=== PATIENT | male | born 1980 | race Caucasian/White ===

== ENCOUNTER 2019-03-11 15:16 | Observation (INO) | payer BC ==
[~2019-03-11] VITALS: Ht 170.2 cm; Wt 72.6 kg
--- OUTSIDE RECORDS SUMMARY | 2019-03-11 15:19 | XMS REPORT ---
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 Allergies, Adverse Reactions, Alerts Allergy Name Allergy Type Status Severity Reaction(s) Onset Date Inactive Date Treating Clinician Comments Penicillins DA Active U 2018-09-10 00:00:00 vancomycin DA Active U 2018-09-10 00:00:00 Penicillins DA Active U 2014-03-08 00:00:00 vancomycin DA Active U 2014-03-08 00:00:00 Medications This patient has no known medications. Results Test Description Test Time Test Comments Text Results Atomic Results Result Comments - XR ABDOMEN 1V (KUB) 2018-11-18 10:16:00 FAX: Johny Futlon MD [phone] [place]: St: REG Name: YOVANY MACHADO [facility] [place] : 1980 Age/S: 38/M [address] [place] [address] Bl Unit #: [id number] Loc: [place] [address] Phys: Johny Duran MD Acct: [id number] Dis Date: Status: REG CLI PHONE #: [phone] Exam Date: 11/18/2018 1013 FAX #: [phone] Reason: KIDNEY STONE EXAMS: CPT CODE: [id number] XR ABDOMEN 1V (KUB) 79522 ABDOMEN KUB, 11/18/2018: COMPARISON: CT abdomen dated October 27, 2018 CLINICAL HISTORY: KIDNEY STONE FINDINGS: AP view of the abdomen was obtained. The abdominal gas pattern was nonspecific without definite evidence of obstruction. 3.5 mm calculus overlies the upper pole of the right kidney. Assessment of the kidneys is limited due to overlying bowel contents. Multiple calcified phleboliths are present in the pelvis bilaterally. IMPRESSION: Nonspecific, nonobstructive bowel gas pattern. Right renal calculus. (Note: Recent CT study demonstrated bilateral nephrolithiasis. Renal calculi are better seen on the CT study than on this radiograph.). at 1016 Reported and signed by: Rocky Marshall M.D. CC: Johny Duran MD Technologist: RT Kosta(R) Trnscrd Date/Time/By: 11/18/2018 (1016) : By: [email or web address] Orig Print D/T: S: 11/18/2018 (1019) PAGE 1 Signed Report UA RFLX MICR CULT IF INDICATED 2018-10-27 14:48:00 UA COLOR (test code=COLU) YELLOW YEL/STRAW UA APPEARANCE (test code=APPU) SL CLOUDY CLEAR UA GLUCOSE DIPSTICK (test code=DGLUU) NEGATIVE NEGATIVE UA BILIRUBIN DIPSTICK (test code=BILU) NEGATIVE NEGATIVE UA KETONE DIPSTICK (test code=KETU) NEGATIVE NEGATIVE UA SPECIFIC GRAVITY (test code=SGU) 1.014 1.005-1.030 UA BLOOD DIPSTICK (test code=NAREN) 3+ NEGATIVE UA PH DIPSTICK (test code=FOREST) 5.0 5.0-7.0 UA PROTEIN DIPSTICK (test code=PROU) NEGATIVE NEGATIVE UA UROBILINIOGEN DIPSTICK (test code=URO) 0.2 mg/dL 0.2-1.0 UA NITRITE DIPSTICK (test code=DARREN) NEGATIVE NEGATIVE UA LEUKOCYTE ESTERASE DIPSTICK (test code=LEUU) NEGATIVE NEGATIVE UA WBC (test code=WBCU) 4-9 WBC/HPF 0-3 UA RBC (test code=RBCU) >50 RBC/HPF 0-3 UA WBC NO REFLEX (test code=WBCUCL) 4-9 WBC/HPF 0-3 UA BACTERIA (test code=BACU) TRACE /HPF NONE SEEN UA SQUAMOUS CELLS (test code=SQU) 0-5 /HPF NONE SEEN UA MUCUS (test code=MUCU) 4+ /LPF NONE SEEN Indication for culture: Flank PainSpecimen Description: CLEAN CATCH- CT ABD PELVIS W/O [id number] 12:23:00 Name: YOVANY MACHADO [facility] : 1980 Age/S: 38 / M [address] [place] [address] Blvd Unit #: [id number] Loc: [place] [address] Phys: Prabha Alexis 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 History of renal stones. Comparison: 03/08/2014. TECHNIQUE: Contiguous axial CT images of the abdomen and pelvis were acquired without the administration of IV contrast. Oral contrast was not administered. Coronal and sagittal reconstructions were obtained. CT imaging performed at this location utilizes radiation dose optimization techniques which include one or more of the following: -Automated exposure control -Adjustment of the mA and/or kV according to patient size -Use of iterative reconstruction technique CT Radiation Dose DLP 550 mGy-cm FINDINGS: Lung bases are clear. Visualized cardiac apex is unremarkable. Liver, gallbladder, spleen, pancreas, and adrenal glands are unremarkable. Multiple nonobstructing stones within the kidneys. On the right 5 punctate stones are identified me asuring up to 5 mm. On the left, there is a punctate 1 mm stone within th e lower pole. Slight prominence of the left ureter without overt hydroure teronephrosis. A 2 mm stone is seen lying dependently within the urinary b ladder, presumably recently passed. Stomach and small bowel are unremarkable. The appendix is normal. Colon is unremarkable. Prosta te is unremarkable. No free fluid or pneumoperitoneum. Abdominal aorta is normal caliber. No aggressive or destructive osseous lesion. So ft tissues are unremarkable. IMPRESSION: 1. Multip le nonobstructing stones within both kidneys. A 2 mm stone is seen lyin g dependently within the urinary bladder, presumably recently passed. N o hydroureteronephrosis. SL: [id number] PAGE 1 Signed Report (CONTINUED) Name: Tiny MACHADO [facility] : 1980 Age /S: 38 / M [address] [place] [address] Blvd Unit #: [id number] Loc: [place] [address] Phys: Prabha Alexis NP Acct: [id number] Dis Date: Status: REG ER PHONE #: [phone] Exam Date: 10/27/2018 1200 FAX #: [phone] Reason: L flank pain, hx stones EXAMS: CPT CODE: [id number] CT ABD PELVIS W/O CONT 53897 <Continued> at 1223 Reported and signed by: Jessenia Llanos M.D. CC: Prabha Alexis NP Technologist:Addie Lange RT(R)(CT) CTDI: DLP: Trnscb Date/Time: 10/27/2018 (1223) [email or web address] Orig Print D/T: S: 10/27/2018 (1226) PAGE 2 Signed Report COMPREHENSIVE METABOLIC [id number] 12:21:00* Test Item Value Reference Range Comments SODIUM (test code=NA) 139 mEq/L 134-147 POTASSIUM (test code=K) 4.0 mEq/L 3.4-5.0 CHLORIDE (test code=CL) 108 mEq/L 100-108 CARBON DIOXIDE (test code=CO2) 25 mEq/L 21-33 ANION GAP (test code=GAP) 10 0-20 GLUCOSE (test code=GLU) 95 mg/dL 70-110 BLOOD UREA NITROGEN (test code=BUN) 8 mg/dL 7-18 GLOMERULAR FILTRATION RATE (test code=GFR) 74.1 95-105 Units of measure=ml/min/1.73 m2 CREATININE (test code=CREAT) 1.1 mg/dL 0.6-1.3 TOTAL PROTEIN (test code=PROT) 7.7 g/dL 6.4-8.2 ALBUMIN (test code=ALB) 3.90 g/dL 3.4-5.0 CALCIUM (test code=CA) 8.7 mg/dL 8.0-10.5 BILIRUBIN TOTAL (test code=BILT) 0.40 mg/dL 0.0-1.0 SGOT/AST (test code=AST) 12 IUnit/L 15-37 SGPT/ALT (test code=ALT) 29 IUnit/L 15-65 ALKALINE PHOSPHATASE TOTAL (test code=ALKP) 58 IUnit/L 20-125 [id number] 12:21:00* Test Item Value Reference Range Comments LIPASE (test code=LIP) 71 IUnit/L 73-393 COMPREHENSIVE METABOLIC [id number] 12:17:00* Test Item Value Reference Range Comments SODIUM (test code=NA) 139 mEq/L 134-147 POTASSIUM (test code=K) 4.0 mEq/L 3.4-5.0 CHLORIDE (test code=CL) 108 mEq/L 100-108 CARBON DIOXIDE (test code=CO2) 25 mEq/L 21-33 ANION GAP (test code=GAP) 10 0-20 GLUCOSE (test code=GLU) 95 mg/dL 70-110 BLOOD UREA NITROGEN (test code=BUN) 8 mg/dL 7-18 GLOMERULAR FILTRATION RATE (test code=GFR) 95-105 CREATININE (test code=CREAT) mg/dL 0.6-1.3 TOTAL PROTEIN (test code=PROT) g/dL 6.4-8.2 ALBUMIN (test code=ALB) g/dL 3.4-5.0 CALCIUM (test code=CA) 8.7 mg/dL 8.0-10.5 BILIRUBIN TOTAL (test code=BILT) mg/dL 0.0-1.0 SGOT/AST (test code=AST) IUnit/L 15-37 SGPT/ALT (test code=ALT) IUnit/L 15-65 ALKALINE PHOSPHATASE TOTAL (test code=ALKP) IUnit/L 20-125 [id number] 12:17:00* Test Item Value Reference Range Comments LIPASE (test code=LIP) IUnit/L 73-393 CBC W/AUTO [id number] 12:07:00* Test Item Value Reference Range Comments WHITE BLOOD CELL (test code=WBC) 8.39 x10 3/uL 4.5-11.0 RED BLOOD CELL (test code=RBC) 5.10 x10 6/uL 4.00-5.60 HEMOGLOBIN (test code=HGB) 15.2 g/dL 12.5-16.9 HEMATOCRIT (test code=HCT) 45.8 % 37.5-50.7 MEAN CELL VOLUME (test code=MCV) 89.8 fL 81.0-99.0 MEAN CELL HGB (test code=MCH) 29.8 pg 27.0-33.0 MEAN CELL HGB CONCETRATION (test code=MCHC) 33.2 g/dL 33.0-37.0 RED CELL DISTRIBUTION WIDTH CV (test code=RDW) 12.4 % 11.5-14.5 RED CELL DISTRIBUTION WIDTH SD (test code=RDW-SD) 41.1 fL 37.0-54.0 PLATELET COUNT (test code=PLT) 318 x10 3/uL 150-400 MEAN PLATELET VOLUME (test code=MPV) 9.8 fL 7.0-9.0 NEUTROPHIL % (test code=NT%) 84.0 % 56.0-77.0 IMMATURE GRANULOCYTE % (test code=IG%) 0.5 % 0.0-2.0 LYMPHOCYTE % (test code=LY%) 9.9 % 14.0-32.0 MONOCYTE % (test code=MO%) 4.2 % 4.8-9.0 EOSINOPHIL % (test code=EO%) 1.2 % 0.3-3.7 BASOPHIL % (test code=BA%) 0.2 % 0.0-2.0 NUCLEATED RBC % (test code=NRBC%) 0.0 % 0-0 NEUTROPHIL # (test code=NT#) 7.05 x10 3/uL 2.0-7.6 IMMATURE GRANULOCYTE # (test code=IG#) 0.04 x10 3/uL 0.00-0.03 LYMPHOCYTE # (test code=LY#) 0.83 x10 3/uL 1.0-3.8 MONOCYTE # (test code=MO#) 0.35 x10 3/uL 0.1-0.8 EOSINOPHIL # (test code=EO#) 0.10 x10 3/uL 0.0-0.2 BASOPHIL # (test code=BA#) 0.02 x10 3/uL 0.0-0.2 NUCLEATED RBC # (test code=NRBC#) 0.00 x10 3/uL 0.0-0.1 MANUAL DIFF REQUIRED (test code=MDIFF) NO - XR FEMUR MIN 2 VWS [id number] 11:49:00 FAX: Rivas Stacy [phone] [place]: St: REG Name: YOVANY PHILLIPS [facility] : [birth year] Age/S: 38/M [address] [place] [address] Unit #: [id number] Loc: [place] [address] Phys: Rivas Stacy Acct: [id number] Dis Date: Status: REG ER PHONE #: [phone] Exam Date: 09/10/2018 1128 FAX #: [phone] Reason: knee swelling, painful ROM after hyperextension EXAMS: CPT CODE: [id number] XR FEMUR MIN [address] [place] [address] Study: - XR KNEE 1 OR 2 V LT, - XR TIBIA/FIBULA 2 V LT, - XR FEMUR MIN 2 VWS LT 09/10/2018 10:27 AM Patient Name: YOVANY MACHADO MR: [id number] : 1980; Age: 38 years y/o Male Ordering Physician: AMOR Banerjee Clini gianni Indication: knee swelling, painful ROM after hyperextension Co mparison: None LEFT FEMUR, 2 views Left knee, 2 views Left tibia and fibula, 2 views: No acute fracture, dislocation, or suspicious focal osseous lesion. Nonspecific calcification at the anterom edial aspect of the mid fibular shaft The soft tissues are normal. IMPRESSION: No acute fracture or malalignment SL: [id number] at 1149 Reported and si gned by: Adonis Ashraf M.D. CC: Rivas CHINCHILLA Technologist: FRANCINE Russ) Trnscrd Date/Time/By: 09/10/2018 (0395) : By: Maria [email or web address] Orig Print D/T: S: 09/10/2018 (9909) PAGE 1 Signed Report - XR TIBIA/FIBULA 2 V LT 2018-09-10 11:49:00 FAX: Rivas Stacy [phone] [place]: St: REG Name: YOVANY PHILLIPS [facility] : [birth year] Age/S: 38/M [address] [place] [address] Unit #: [id number] Loc: [place] [address] Phys: Rivas Stacy Acct: [id number] Dis Date: Status: REG ER PHONE #: [phone] Exam Date: 09/10/2018 1128 FAX #: [phone] Reason: knee swelling, painful ROM after hyperextension EXAMS: CPT CODE: [id number] XR TIBIA/FIBULA 2 [place] [address] Study: - XR KNEE 1 OR 2 V LT, - XR TIBIA/FIBULA 2 V LT, - XR FEMUR MIN 2 VWS LT 09/10/2018 10:27 AM Patient Name: YOVANY MACHADO MR: [id number] : 1980; Age: 38 years y/o Male Ordering Physician: AMOR Banerjee Clini gianni Indication: knee swelling, painful ROM after hyperextension Co mparison: None LEFT FEMUR, 2 views Left knee, 2 views Left tibia and fibula, 2 views: No acute fracture, dislocation, or suspicious focal osseous lesion. Nonspecific calcification at the anterom edial aspect of the mid fibular shaft The soft tissues are normal. IMPRESSION: No acute fracture or malalignment SL: [id number] at 1149 Reported and si gned by: Adonis Ashraf M.D. CC: Rivas CHINCHILLA Technologist: RT Jeb(R) Trnscrd Date/Time/By: 09/10/2018 (4478) : By: Maria [email or web address] Orig Print D/T: S: 09/10/2018 (5449) PAGE 1 Signed Report - XR KNEE 1 OR 2 V [id number] 11:49:00 FAX: Rivas Stacy [phone] [place]: St: REG Name: YOVANY PHILLIPS [facility] : [birth year] Age/S: 38/M [address] [place] [address] Unit #: [id number] Loc: [place] [address] Phys: Rivas Stacy Acct: [id number] Dis Date: Status: REG ER PHONE #: [phone] Exam Date: 09/10/2018 1128 FAX #: [phone] Reason: knee swelling, painful ROM after hyperextension EXAMS: CPT CODE: [id number] XR KNEE 1 OR 2 [place] [address] Study: - XR KNEE 1 OR 2 V LT, - XR TIBIA/FIBULA 2 V LT, - XR FEMUR MIN 2 VWS LT 09/10/2018 10:27 AM Patient Name: YOVANY MACHADO MR: [id number] : 1980; Age: 38 years y/o Male Ordering Physician: AMOR Banerjee Clini gianni Indication: knee swelling, painful ROM after hyperextension Co mparison: None LEFT FEMUR, 2 views Left knee, 2 views Left tibia and fibula, 2 views: No acute fracture, dislocation, or suspicious focal osseous lesion. Nonspecific calcification at the anterom edial aspect of the mid fibular shaft The soft tissues are normal. IMPRESSION: No acute fracture or malalignment SL: [id number] at 1149 Reported and si gned by: Adonis Ashraf M.D. CC: Rivas CHINCHILLA Technologist: RT Jeb(Maral) Trnscrd Date/Time/By: 09/10/2018 (7865) : By: Maria [email or web address] Orig Print D/T: S: 09/10/2018 (1394) PAGE 1 Signed Report
[2019-03-11] MEDS ORDERED: ONDANSETRON HCL INJ 2MG/ML 2ML 2 MG/ML VIAL IV STA (15:20)
[2019-03-11] MEDS ORDERED: KETOROLAC TROMETHAMINE 30 MG/ML VIAL IV STA (15:20)
[2019-03-11] MEDS ORDERED: SODIUM CHLORIDE 0.9% 1000ML 1,000 ML IV STA (15:20)
[2019-03-11] MEDS ORDERED: CEFTRIAXONE SOD 1 GM/NS 50 ML 50 ML IV ONE (15:30)
[2019-03-11] MEDS ORDERED: GENTAMICIN 80MG/NS 100 ML 200 ML IV ONE (16:00)
[2019-03-11] MEDS ORDERED: IOPAMIDOL 300MG/ML 100 ML INFUS..BTL IV ONE (16:04)
[2019-03-11] MEDS ORDERED: B&O 60MG R/S 60 MG SUPP PR ONE (16:05)
[2019-03-11 16:10] LABS: BASOPHILS % 0.2 % (0.0-1.0); EOSINOPHILS # (AUTO) 0.1 (0.0-0.4); EOSINOPHILS % 1.2 % (0.0-6.0); HEMATOCRIT 41.7 % (38.2-49.6); HEMOGLOBIN 13.6 g/dL (14.0-18.0); LYMPHOCYTES # (AUTO) 1.1 (1.0-3.2); LYMPHOCYTES % 10.2 % (18.0-39.1); MEAN CORPUSCULAR HEMOGLOBIN 29.8 pg (28-32); MEAN CORPUSCULAR HGB CONC 32.6 g/dL (31-35); MEAN CORPUSCULAR VOLUME 91.2 fL (81-99); MONOCYTES # (AUTO) 1.1 (0.2-0.8); MONOCYTES % 9.8 % (4.4-11.3); NEUTROPHILS # (AUTO) 8.7 (2.1-6.9); NEUTROPHILS % 78.3 % (38.7-80.0); PLATELET COUNT 260 x10e3/uL (140-360); RED BLOOD COUNT 4.57 x10e6/uL (4.3-5.7); RED CELL DISTRIBUTION WIDTH 12.7 % (11.7-14.4)
--- NOTE | 2019-03-11 16:26 | Diagnostic Imaging Report ---
Exam: KUB - 2 views Indication: Ureteral calculus Comparison: None Findings: No radiographically apparent renal calculi. No calcific densities over the expected course of the ureters. Nonobstructive bowel gas pattern. No free air. Phleboliths in the pelvis. No acute osseous injury. Impression: No radiographically apparent urinary calculi. Signed by: Meghna Richardson MD on 03/11/2019 4:24 PM
[2019-03-11 16:29] LABS: CALCIUM 9.1 mg/dL (8.4-10.2); CREATININE, SERUM 1.54 mg/dL (0.72-1.25)
[2019-03-11] MEDS ORDERED: MORPHINE SULFATE INJ 4 MG/ML INJ 1ML IV PRN (16:30)
[2019-03-11] MEDS ORDERED: ONDANSETRON HCL INJ 2MG/ML 2ML 2 MG/ML VIAL IV PRN (16:30)
[2019-03-11] MEDS ORDERED: MORPHINE SULFATE 2 MG/ML SYR 1ML IV PRN (16:30)
[2019-03-11] MEDS ORDERED: D5.45%NS/KCL 20MEQ 1,000 ML IV SCH (17:24)
[2019-03-11] MEDS ORDERED: B&O 60MG R/S 60 MG SUPP PR PRN (17:30)
[2019-03-11] MEDS ORDERED: MORPHINE SULFATE 1 MG/ML 30ML PCA IV PRN (17:30)
[2019-03-11] MEDS ORDERED: DIPHENHYDRAMINE HCL 25 MG CAP PO PRN (17:30)
[2019-03-11] MEDS ORDERED: NALOXONE HCL INJ 0.4 MG/ML AMP IV PRN (17:30)
[2019-03-11] MEDS ORDERED: PHENAZOPYRIDINE HCL 100 MG TAB PO SCH (18:00)
[2019-03-11] MEDS ORDERED: ACETAMINOPHEN 1000 MG/100 ML IV SCH (18:00)
[2019-03-11] MEDS ORDERED: SEVOFLURANE INHAL SOLN 250 ML PEN BTL ONE (18:10)
[2019-03-11] MEDS ORDERED: PROPOFOL IV EMULSION 10 MG/ML 20 ML VIAL ONE (18:10)
[2019-03-11] MEDS ORDERED: ONDANSETRON HCL INJ 2MG/ML 2ML 2 MG/ML VIAL ONE (18:10)
[2019-03-11] MEDS ORDERED: DEXAMETHASONE SOD PHOS INJ 4 MG/ML VIAL ONE (18:10)
[2019-03-11] MEDS ORDERED: ACETAMINOPHEN 1000 MG/100 ML IV ONE (18:10)
[2019-03-11] MEDS ORDERED: KETOROLAC TROMETHAMINE 30 MG/ML VIAL ONE (18:10)
[2019-03-11] MEDS ORDERED: MORPHINE SULFATE 1 MG/ML 30ML PCA ONE (18:21)
--- NOTE | 2019-03-11 18:58 | NUR ---
RECEIVED REPORT FROM PREVIOUS NURSE. WHILE RECEIVING REPORT, PATIENT ARRIVED TO THE UNIT VIA STRETCHER AND BOTTOMING ROOM INSPECTOR PUMP. PATIENT IN NO DISTRESS. PATIENT WALKED FROM STRETCHER TO THE BED WITH NO PAIN. CALL LIGHT WITHIN REACH. PATIENT IS A&OX3 AND AMBULATES.
[2019-03-11 19:30] VITALS: BP 119/69
[2019-03-11 20:00] VITALS: BP 119/69
[2019-03-11] MEDS ORDERED: LEVOFLOXACIN 500 MG TAB PO SCH (20:00)
[2019-03-11] MEDS: OXYBUTYNIN CHLORIDE 5 MG TAB PO SCH (20:04)
[2019-03-11 20:19] VITALS: BP 119/69
[2019-03-11] MEDS: ONDANSETRON HCL INJ 2MG/ML 2ML 2 MG/ML VIAL IV PRN (23:36)
[2019-03-12] MEDS: SODIUM CHLORIDE 0.9% 1000ML 1,000 ML IV SCH ×2 (00:36→09:09)
[2019-03-12 00:45] VITALS: BP 116/68
[2019-03-12] MEDS ORDERED: TYLENOL # 31 EA (03:07)
[2019-03-12] MEDS ORDERED: KETOROLAC TROME10 MG (03:07)
[2019-03-12] MEDS ORDERED: FLOMAX0.4 MG (03:07)
[2019-03-12] MEDS ORDERED: ONDANSETRON HCL4 MG (03:07)
[2019-03-12 04:18] VITALS: BP 111/63
[2019-03-12 05:32] LABS: HEMATOCRIT 38.1 % (38.2-49.6); HEMOGLOBIN 12.3 g/dL (14.0-18.0); LYMPHOCYTES # (AUTO) 0.4 (1.0-3.2); LYMPHOCYTES % 4.7 % (18.0-39.1); MEAN CORPUSCULAR HEMOGLOBIN 29.8 pg (28-32); MEAN CORPUSCULAR HGB CONC 32.3 g/dL (31-35); MEAN CORPUSCULAR VOLUME 92.3 fL (81-99); MONOCYTES # (AUTO) 0.3 (0.2-0.8); MONOCYTES % 3.9 % (4.4-11.3); NEUTROPHILS # (AUTO) 7.8 (2.1-6.9); NEUTROPHILS % 90.8 % (38.7-80.0); PLATELET COUNT 239 x10e3/uL (140-360); RED BLOOD COUNT 4.13 x10e6/uL (4.3-5.7); RED CELL DISTRIBUTION WIDTH 12.6 % (11.7-14.4)
[2019-03-12 05:48] LABS: ANION GAP 12.2 mmol/L (8-16); BLOOD UREA NITROGEN 10 mg/dL (7-26); BUN/CREATININE RATIO 9 (6-25); CALCIUM 8.6 mg/dL (8.4-10.2); CARBON DIOXIDE 25 mmol/L (22-29); CHLORIDE 107 mmol/L (98-107); CREATININE, SERUM 1.06 mg/dL (0.72-1.25); EST GLOMERULAR FILTRATION RATE > 60 ML/MIN (60-); GLUCOSE 134 mg/dL (74-118); POTASSIUM 4.2 mmol/L (3.5-5.1); SODIUM 140 mmol/L (136-145)
--- NOTE | 2019-03-12 07:09 | NUR ---
received pt from previous shift, blend technician morphine checked, pt resting in bed
--- NOTE | 2019-03-12 07:24 | NUR ---
GAVE BEDSIDE SHIFT REPORT TO ONCOMING NURSE. CALL LIGHT WITHIN REACH. PATIENT ASLEEP IN BED. PATIENT IN NO PAIN OR DISTRESS.
[2019-03-12 08:04] VITALS: BP 100/70
[2019-03-12] MEDS: OXYBUTYNIN CHLORIDE 5 MG TAB PO SCH (08:25)
[2019-03-12] MEDS: ONDANSETRON HCL INJ 2MG/ML 2ML 2 MG/ML VIAL IV PRN (08:25)
[2019-03-12 08:30] VITALS: BP 100/70
[2019-03-12] MEDS ORDERED: DOCUSATE SODIUM 100 MG CAP PO SCH (09:00)
[2019-03-12] MEDS ORDERED: CIPRO500 MG PO (11:59)
[2019-03-12] MEDS ORDERED: CELEBREX100 MG PO (12:00)
[2019-03-12] MEDS ORDERED: ULTRAM50 MG PO (12:01)
[2019-03-12] MEDS ORDERED: DITROPAN XL5 MG PO (12:01)
[2019-03-12 13:53] VITALS: BP 134/83
--- NOTE | 2019-03-13 00:45 | Discharge Summary ---
FINAL DIAGNOSIS: Right 5 mm urethral stone associated with hydronephrosis, status post cystoscopy with stent placement. SUMMARY: The patient is a 38-year-old male with stone. The patient had multiple stones in the past, but did not require stenting, now came in with hydronephrosis, severe pain, right renal colic. The patient now status post stent placement. He is doing much better. Pain has significantly improved. The patient is urinating. No Dang catheter. The patient has been cleared by Dr. Nick La, his urologist, for going home. I will send the patient home. Dr. La will give the patient tramadol and Ditropan and I went ahead and gave the patient Cipro 500 mg twice a day for 7 days and Celebrex 100 mg twice a day as needed for pain. The patient is otherwise stable, discharged home. Follow up with Dr. Nick La closely. MD ZAYRA Luz/GREGORIO /[id number]
[2019-03-30] MEDS ORDERED: AZO BLADDER CO300 MG PO (15:28)
--- NOTE | 2019-04-11 00:49 | Operative Report ---
DATE OF PROCEDURE: 03/11/2019 SURGEON: Nick La MD PREOPERATIVE DIAGNOSES: 1. Right ureterolithiasis. 2. Right hydronephrosis due to stone. 3. Microhematuria. POSTOPERATIVE DIAGNOSES: 1. Right ureterolithiasis. 2. Right hydronephrosis due to stone. 3. Microhematuria. OPERATION PERFORMED: 1. Cystourethroscopy with bilateral ureteral catheterization and retrograde ureteropyelography (separate procedure performed for the microhematuria). 2. Interpretation of retrograde ureteropyelography. 3. Supervision of fluoroscopy, no radiologist present. 4. Right ureteroscopy with stone manipulation and extraction (separate procedure performed for the ureterolithiasis). 5. Cystourethroscopy and insertion of right indwelling ureteral stent (separate procedure performed to relieve the hydronephrosis). 6. Radiological services with supervision and interpretation of ureteroscopy. ANESTHESIA: General. COMPLICATIONS: None. CLINICAL SUMMARY: Jonathan Deluna is a 38-year-old man presented with renal colic and nausea and vomiting. He is brought for stone management. He is aware of the risks of bleeding, infection, injury to adjacent structures, and need for additional procedures, and elected to proceed. OPERATIVE PROCEDURE IN DETAIL: Informed consent was verified. Jonathan Deluna was properly identified, taken to the operating room, and placed on the cystoscopy table in supine position. Anesthesia was uneventfully begun. The patient was then carefully and gently repositioned in the dorsal lithotomy position with all pressure points well padded. His genitalia were prepared and draped in usual sterile fashion. A 22.5-Bulgarian cystoscope sheath with a visual obturator in place was atraumatically inserted in the patient's urethra. It was guided unremarkable distal urethra through normal sphincteric region through the prostate bed, which was significant for trilobar prostatic hypertrophy with a small median lobe is intravesical. There were some mild trabeculations noted, but no tumors, no stones. An 8-Bulgarian ureteral catheter was used to cannulate the right ureter and retrograde ureteropyelograms were performed. Interpretation of retrograde ureteropyelography contrast was instilled in retrograde fashion bilaterally. Left side was unremarkable. There were no tumors, no visible stones, no hydronephrosis. Unobstructed drainage was observed. The right hand side with a filling defect distally with proximal hydroureteronephrosis. A guidewire was then placed into the right ureter and guided to the level of the patient's kidney. Semi-rigid ureteroscopy was then performed. The ureteroscope was brought in alongside the guidewire and atraumatically inserted into the patient's right ureter. We guided up the ureter until we identified the stone. The stone was grasped with a basket and atraumatically extracted. With cystoscopic and fluoroscopic guidance, a right-sided indwelling ureteral stent was then placed. It was coiled in the patient's kidney as well as the patient's bladder at the end of the case. Interpretation of retrograde ureteropyelography contrast was instilled in retrograde fashion bilaterally. The left side was unremarkable. There were no tumors, no stones, and no diverticula. Unobstructed drainage was observed. The patient's bladder was drained. Cystoscope was withdrawn. Belladonna and opium suppository were placed revealing a 25 g prostate, that is smooth, nonfunctional without any nodules. The patient was then uneventfully reversed from anesthesia and taken to recovery room in stable condition. There were no complications. He tolerated the procedure well. Explicit postop instructions were given and we will follow the patient up on a long-term basis. The patient will need to return to the operating room for cystoscopy, removal right stent, and right ureteroscopy in hopes of rendering patient stent free and stone free. Ongoing urological followup for metabolic stone workup was strongly encouraged. MD ADA Scruggs/GREGORIO /[id number]
== END 2019-03-12 13:00 | disposition home or self-care (01) ==
LOC: ER 15:16 → ERHOLD 16:16 → MED/SURG 18:37
PROVIDERS: ADMIT Internal Medicine; ATTEND Internal Medicine
DX: N13.2 Hydronephrosis with renal and ureteral calculous obstruction (principal); M19.90 Unspecified osteoarthritis, unspecified site; R31.29 Other microscopic hematuria
CPT/HCPCS: 36415 ×2; 52320; 52332; 74018; 74420; 80048 ×2; 83970; 84550; 85025 ×2; 88300; 99283; C1758; C2617; G0378 ×2; J0131; J1100; J1580; J1885; J2270 ×2; J2405 ×2; J2704; J7030 ×2; Q9967

== ENCOUNTER → 2019-04-01 | Emergency (ER) | payer BC ==
[~2019-04-01] VITALS: Ht 170.2 cm; Wt 72.6 kg
[~2019-04-01] MED LIST: ACETAMINOPHEN/CODEINE 300MG - 30MG TAB ONE; AZO BLADDER CO300 MG PO; CEFTRIAXONE SOD 1 GM/NS 50 ML 50 ML IV ONE; CELEBREX100 MG PO; CIPRO500 MG PO; DITROPAN XL5 MG PO; FLOMAX0.4 MG; KETOROLAC TROME10 MG; KETOROLAC TROMETHAMINE 30 MG/ML VIAL IM PRN; KETOROLAC TROMETHAMINE 30 MG/ML VIAL IV STA; ONDANSETRON HCL INJ 2MG/ML 2ML 2 MG/ML VIAL IV PRN; ONDANSETRON HCL4 MG; PHENAZOPYRIDINE HCL 100 MG TAB PO SCH; SODIUM CHLORIDE 0.9% 1000ML 1,000 ML IV SCH; SODIUM CHLORIDE 0.9% 1000ML 1,000 ML IV STA; SODIUM CHLORIDE 0.9% 1000ML 1,000 ML ONE; TYLENOL # 31 EA; ULTRAM50 MG PO
[2019-04-01 06:38] LABS: BASOPHILS % 0.4 % (0.0-1.0); EOSINOPHILS # (AUTO) 0.3 (0.0-0.4); EOSINOPHILS % 5.1 % (0.0-6.0); HEMATOCRIT 43.4 % (38.2-49.6); HEMOGLOBIN 14.4 g/dL (14.0-18.0); LYMPHOCYTES # (AUTO) 1.6 (1.0-3.2); LYMPHOCYTES % 30.9 % (18.0-39.1); MEAN CORPUSCULAR HEMOGLOBIN 29.8 pg (28-32); MEAN CORPUSCULAR HGB CONC 33.2 g/dL (31-35); MEAN CORPUSCULAR VOLUME 89.7 fL (81-99); MONOCYTES # (AUTO) 0.4 (0.2-0.8); MONOCYTES % 7.5 % (4.4-11.3); NEUTROPHILS # (AUTO) 2.8 (2.1-6.9); NEUTROPHILS % 55.7 % (38.7-80.0); PLATELET COUNT 338 x10e3/uL (140-360); RED BLOOD COUNT 4.84 x10e6/uL (4.3-5.7); RED CELL DISTRIBUTION WIDTH 12.5 % (11.7-14.4)
[2019-04-01 06:53] LABS: ANION GAP 13.6 mmol/L (8-16); BLOOD UREA NITROGEN 11 mg/dL (7-26); BUN/CREATININE RATIO 10 (6-25); CALCIUM 8.9 mg/dL (8.4-10.2); CARBON DIOXIDE 21 mmol/L (22-29); CHLORIDE 110 mmol/L (98-107); EST GLOMERULAR FILTRATION RATE > 60 ML/MIN (60-); GLUCOSE 107 mg/dL (74-118); POTASSIUM 3.6 mmol/L (3.5-5.1); SODIUM 141 mmol/L (136-145)
--- NOTE | 2019-04-01 07:04 | Diagnostic Imaging Report ---
EXAM: ABDOMEN-1VIEW (KUB), DATE: 04/01/2019 6:24 AM INDICATION: Right lower quadrant pain. COMPARISON: 03/11/2019. FINDINGS: LINES/TUBES: Right double-J ureteral stent has been placed and appears in adequate position. BOWEL PATTERN: No evidence for obstruction. SOFT TISSUES: Calcifications again observed in the lower pelvis suggestive of phleboliths. LUNG BASES: Not included BONES: No acute findings. IMPRESSION: Right double-J ureteral stent has been placed and appears in adequate position. Signed by: Dr. Chilango López M.D. on 04/01/2019 7:02 AM
--- NOTE | 2019-04-01 07:16 | NUR ---
went to assess patient. Patient laying in bed resting. Patient states that pain has improved with Toradol. Asked patient if he could provide a urine sample. Patient states that he was unable at the moment because he had just urinated prior to arrival. Provided patient with urinal in order to provide sample. Also gave patient warm blankets. Educated patient to notify me when he could provide a sample. Patient verbalized understanding.
== END ==
LOC: ER 06:14 → OR 08:20
DX: R10.9 Unspecified abdominal pain (principal); Z96.0 Presence of urogenital implants; Z53.20 Procedure and treatment not carried out because of patient's decision for unspecified reasons
CPT/HCPCS: 36415; 74018; 80048; 85025; 93005; J1885; J7030

== ENCOUNTER → 2019-04-01 | Day surgery (SDC) | payer BC ==
[~2019-04-01] MED LIST changes: -ACETAMINOPHEN/CODEINE 300MG - 30MG TAB ONE; +B&O 60MG R/S 60 MG SUPP PR ONE; -CEFTRIAXONE SOD 1 GM/NS 50 ML 50 ML IV ONE; +DEXAMETHASONE SOD PHOS INJ 4 MG/ML VIAL ONE; +FENTANYL CITRATE/PF 100MCG/2 ML INJ ONE; +IOPAMIDOL 300MG/ML 50ML INFUS..BTL IV ONE; -KETOROLAC TROMETHAMINE 30 MG/ML VIAL IM PRN; -KETOROLAC TROMETHAMINE 30 MG/ML VIAL IV STA; +LEVOFLOXACIN 500MG/D5W 100ML 100 ML IV ONE; +LIDOCAINE HCL 2% LOCAL INJ 5 ML SDV VIAL INJ ONE; +MIDAZOLAM HCL 2 MG/2 ML VIAL ONE; -ONDANSETRON HCL INJ 2MG/ML 2ML 2 MG/ML VIAL IV PRN; +ONDANSETRON HCL INJ 2MG/ML 2ML 2 MG/ML VIAL ONE; -PHENAZOPYRIDINE HCL 100 MG TAB PO SCH; +PROPOFOL IV EMULSION 10 MG/ML 20 ML VIAL ONE; +SEVOFLURANE INHAL SOLN 250 ML PEN BTL ONE; -SODIUM CHLORIDE 0.9% 1000ML 1,000 ML IV SCH; -SODIUM CHLORIDE 0.9% 1000ML 1,000 ML IV STA; -SODIUM CHLORIDE 0.9% 1000ML 1,000 ML ONE
[2019-04-01 14:40] VITALS: BP 126/80
--- NOTE | 2019-04-04 00:55 | Operative Report ---
DATE OF PROCEDURE: 04/01/2019 SURGEON: Nick La MD PREOPERATIVE DIAGNOSES: 1. Right nephrolithiasis. 2. Right indwelling ureteral stent. POSTOPERATIVE DIAGNOSES: 1. Right nephrolithiasis. 2. Right indwelling ureteral stent. OPERATION PERFORMED: Note, these were all staged procedures as part of multi-staged and multi-step process in managing patient's nephrolithiasis. 1. Cystourethroscopy with complicated removal of right indwelling ureteral stent (separate procedure performed for diagnosis of stent on the separate scope). 2. Repeated right ureteral pyeloscopy with stone manipulation and extraction (separate procedure performed to remove twice separate stones from the patient's right kidney). 3. Urological services with supervision and interpretation of ureteroscopy. 4. Interpretation of retrograde ureteropyelography. 5. Supervision of fluoroscopy, no radiologist present. ANESTHESIA: General. COMPLICATIONS: None. CLINICAL SUMMARY: Jonathan Deluna is a 38-year-old man with a stent, he underwent management of the right ureteral stone. He is brought for removal of the stent in hopes of rendering him stent free and stone free. He is aware of the risks of bleeding, infection, injury to the adjacent structures, need for additional procedures and elected to proceed. OPERATIVE PROCEDURE IN DETAIL: Informed consent was verified. Jonathan Deluna was properly identified, taken to the operating room, placed on the cystoscopy table in supine position. Anesthesia was uneventfully begun. The patient was then carefully gently repositioned in the dorsal lithotomy position with all pressure points well padded. His genitalia were prepared and draped in usual sterile fashion and the cystoscope sheath with a visual obturator in place was atraumatically inserted. 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 Went through the patient's bladder, panendoscopy revealed no suspicious lesions, no tumors. The stent was noted to be emerging from the right ureteral orifice. A guidewire was then placed alongside the stent and guided to the level of the patient's kidney. The stent was then grasped, completely removed and discarded. Semi-rigid ureteroscope was then placed alongside of the guidewire into the distal right ureter. No stone was identified. A second guidewire was placed. Flexible ureteroscope was then placed over the guidewire and guided below the patient's kidney. Panendoscopy revealed stones as well as Laureano's plaques. A flexible ureteroscopy sheath was then atraumatically placed. We made numerous passes with the flexible ureteroscope each time grasping the stone and extracting it. Once all stones were extracted, we carefully examined the ureter as we exited, it revealed no residual stones, no strictures, no sign of any injury from the ureteral access sheath. Interpretation of retrograde ureteropyelography, contrast was instilled in retrograde fashion on right hand side. There were no tumors. There were no stones or easily visible. No suspicious lesions. There was no extravasation noted. Unobstructed drainage was observed fluoroscopically. The patient's bladder was drained. Cystoscope was withdrawn. Belladonna and opium suppository were placed revealing a 25 g prostate that is smooth, non-fluctuant, without any nodules. The patient was then uneventfully reversed from anesthesia and taken to recovery room in stable condition. There were no complications to the procedure. He tolerated the well. Explicit postop instructions were given. The patient was admitted on observation basis to ensure he does not have any persistent renal colic following adequate pain control. He will be discharged with followup in about a month in the office. The patient was instructed to performed a 24-hour urine test to complete the metabolic stone workup and aggressively work towards stone prevention. MD ADA Scruggs/GREGORIO /[id number]
== END | disposition home or self-care (01) ==
LOC: OR 05:00
PROVIDERS: ATTEND Urology
DX: N20.0 Calculus of kidney (principal); Z46.6 Encounter for fitting and adjustment of urinary device; N13.30 Unspecified hydronephrosis; N28.89 Other specified disorders of kidney and ureter; N40.0 Benign prostatic hyperplasia without lower urinary tract symptoms; F43.10 Post-traumatic stress disorder, unspecified; Z88.6 Allergy status to analgesic agent; Z88.1 Allergy status to other antibiotic agents; Z88.0 Allergy status to penicillin; Z01.810 Encounter for preprocedural cardiovascular examination; Z87.820 Personal history of traumatic brain injury; Z87.891 Personal history of nicotine dependence; Z84.1 Family history of disorders of kidney and ureter
CPT/HCPCS: 52352; 74420; 88300; C1766; C1769; J1100; J1956; J2001; J2250; J2405; J2704; J3010; Q9967; 36415; 74018; 80048; 85025; 93005; J1885; J7030